=== PATIENT | male | born 1930 | race Caucasian/White ===

== ENCOUNTER 2019-05-21 19:56 | Emergency (ER) | payer MEDICARE ==
[2019-05-21 20:06] VITALS: BP 133/73; PULSE 60; RESP 18; TEMP 96.8
--- NOTE | 2019-05-21 20:31 | ED ---
Fall HPI - General Chief Complaint: Fall Stated Complaint: Fall Time Seen by Provider: 05/21/19 19:59 Source: patient, EMS, RN notes reviewed, old records reviewed Mode of arrival: EMS Limitations: altered mental status (Alcohol intoxication) - History of Present Illness Initial Comments: This is a-year-old male the ER for evaluation positive alcohol use and abuse and admits alcohol use today and drinking today. Patient was in his garage she fell to the ground and hasn't difficulty getting up this is not a new issue for him as well 20 he does walk with a cane and sometimes if he does go to the ground he has difficulty getting up. Patient again admits L Boyle intoxication today. Patient presents by EMS EMS relates a story patient denies any complaints of pain or injury. MD Complaint: fall, other (Alcohol intoxication) -: hour(s) Fall From: standing When Fall Occurred: 1 hour [employer] Fall Witnessed: yes, by bystander Place Fall Occurred: home Loss of Consciousness: none Prolonged Down Time?: no Symptoms Prior to Fall: none Context: tripped/slipped, alcohol use Associated Symptoms: denies - Related Data Allergies Allergy/AdvReac Type Severity Reaction Status Date / Time No Known Allergies Allergy Verified 05/21/19 20:02 Review of Systems ROS Statement: Those systems with pertinent positive or pertinent negative responses have been documented in the HPI. ROS Other: All systems not noted in ROS Statement are negative. Past Medical History Past Medical History: Diabetes Mellitus, Hypertension, Myocardial Infarction ([place]) History of Any Multi-Drug Resistant Organisms: None Reported Past Surgical History: Coronary Bypass/CABG Past Psychological History: No Psychological Hx Reported Smoking Status: Never smoker Past Alcohol Use History: Daily Past Drug Use History: None Reported General Exam Limitations: no limitations General appearance: alert, in no apparent distress Head exam: Present: atraumatic, normocephalic, normal inspection Eye exam: Present: normal appearance, PERRL, EOMI. Absent: scleral icterus, conjunctival injection, periorbital swelling ENT exam: Present: normal exam, mucous membranes moist Neck exam: Present: normal inspection. Absent: tenderness, meningismus, lym phadenopathy Respiratory exam: Present: normal lung sounds bilaterally. Absent: respiratory distress, wheezes, rales, rhonchi, stridor Cardiovascular Exam: Present: regular rate, normal rhythm, normal heart sounds. Absent: systolic murmur, diastolic murmur, rubs, gallop, clicks GI/Abdominal exam: Present: soft, normal bowel sounds. Absent: distended, tenderness, guarding, rebound, rigid Extremities exam: Present: normal inspection, full ROM, normal capillary refill. Absent: tenderness, pedal edema, joint swelling, calf tenderness Back exam: Present: normal inspection Neurological exam: Present: alert, oriented X3, CN II-XII intact Psychiatric exam: Present: normal affect, normal mood Skin exam: Present: warm, dry, intact, normal color. Absent: rash Course Vital Signs 05/21/19 20:02 Temperature 96.8 F L Pulse Rate 60 Respiratory 18 Rate Blood Pressure 133/73 O2 Sat by Pulse 96 Oximetry - Reevaluation(s) Reevaluation #1: 05/21/19 20:30 Medical records reviewed Reevaluation #2: 05/21/19 20:30 Patient is able to ambulate Medical Decision Making - Medical Decision Making 68 male found after falling in his garage, patient was known to be drinking alcohol today. Patient is not significantly intoxicated and is able to ambulate here in the ER. Patient will be picked up by friends, neighbor and discharged home Disposition Clinical Impression: Alcohol intoxication, Fall Disposition: HOME SELF-CARE Condition: Good Instructions (If sedation given, give patient instructions): Fall Prevention for Older Adults (ED), Alcohol Intoxication (ED) Is patient prescribed a controlled substance at d/c from ED?: No Referrals: None,Stated [Primary Care Provider] - 1-2 days
== END 2019-05-21 21:13 | disposition home or self-care (01) ==
LOC: EC 19:56
DX: F10.129 Alcohol abuse with intoxication, unspecified (principal); I25.2 Old myocardial infarction; E11.9 Type 2 diabetes mellitus without complications; I10 Essential (primary) hypertension; Z95.1 Presence of aortocoronary bypass graft; W18.39XA Other fall on same level, initial encounter; Y92.59 Other trade areas as the place of occurrence of the external cause
CPT/HCPCS: 82075; 99284